=== PATIENT | female | born 1970 | race Asian ===

== ENCOUNTER → 2018-04-29 | Outpatient (CLI) | payer OTHER ==
--- NOTE | 2018-05-02 13:55 | MAMMOGRAPHY REPORT ---
BILATERAL DIGITAL SCREENING MAMMOGRAM TOMOSYNTHESIS WITH CAD: 04/29/2018 CLINICAL HISTORY: Routine screening. Patient has no complaints. TECHNIQUE: Breast tomosynthesis in addition to standard 2D mammography was performed. Current study w as also evaluated with a Computer Aided Detection (CAD) system. COMPARISON: Comparison is made to exams dated: 04/22/2016 mammogram - [facility] an d 10/23/2011 mammogram - [facility]. BREAST COMPOSITION: The tissue of both breasts is extremely dense, which lowers the sensitivity of ma mmography. FINDINGS: There is questionable architectural distortion seen within the right upper outer quadrant on the hilary synthesis images, which may represent normal overlapping fibroglandular tissue although spot compress ion tomosynthesis views and possible breast ultrasound are recommended for further evaluation. The remainder of both breasts are stable compared to prior exams, without suspicious masses, calcific ations, or areas of architectural distortion noted. IMPRESSION: ACR BI-RADS CATEGORY 0: INCOMPLETE EVALUATION: NEED ADDITIONAL IMAGING EVALUATION Possible right breast architectural distortion, for which additional imaging evaluation is recommende d. The patient will be called to schedule an appointment. Some breast cancers are not detected with mammography. A negative mammographic report should not wilber y biopsy if a clinically suggestive mass is present. Kadi Gandhi M.D. ah/:04/30/2018 10:52:47 Process Description Writer: RT Ofe(Destiny)(M), [facility] letter sent: Addl Imaging 0 BI-RADS Code: ACR BI-RADS Category 0: Incomplete Evaluation: Need Additional Imaging Evaluation
== END | disposition home or self-care (01) ==
LOC: C.MAMM 15:04
PROVIDERS: ATTEND Nurse Practitioner Family
DX: Z12.31 Encounter for screening mammogram for malignant neoplasm of breast (principal); N64.89 Other specified disorders of breast